=== PATIENT | male | born 1970 | race Caucasian/White ===

== ENCOUNTER 2023-06-02 08:08 | Day surgery (SDC) | payer OTHER ==
[~2023-06-02] VITALS: Ht 175.3 cm; Wt 99.8 kg
[2023-06-02] MEDS ORDERED: LIDOCAINE 2% 100 MG/5 ML UJET TP ONE (10:07)
[2023-06-02] MEDS ORDERED: MIDAZOLAM 2 MG/2 ML VIAL ONE (10:07)
[2023-06-02] MEDS ORDERED: fentaNYL citrate 0.05 MG/ML VIAL ONE (10:07)
[2023-06-02] MEDS: MIDAZOLAM 2 MG/2 ML VIAL IV SCH (12:07)
[2023-06-02] MEDS: fentaNYL citrate 0.05 MG/ML VIAL IVP SCH (12:08)
== END 2023-06-02 13:32 | disposition home or self-care (01) ==
LOC: MDS 08:08 → MMU 08:13 → MDS 13:32
PROVIDERS: ATTEND Internal Medicine Gastroenterology
DX: R19.7 Diarrhea, unspecified (principal); R11.2 Nausea with vomiting, unspecified; K57.30 Diverticulosis of large intestine without perforation or abscess without bleeding; I10 Essential (primary) hypertension; E11.9 Type 2 diabetes mellitus without complications; Z79.899 Other long term (current) drug therapy; Z98.890 Other specified postprocedural states
CPT/HCPCS: 36415; 43239; 45380; 82948; 86677; 88305; J2250; J3010